=== PATIENT | female | born 1975 | race Caucasian/White ===

== ENCOUNTER → 2017-10-15 08:16 | Outpatient (CLI) | payer OTHER, SELFPAY ==
[2017-10-21 13:46] LABS: HPV Reflexed? NOT INDICATED
== END ==
PROVIDERS: Visit Provider Obstetrics & Gynecology
DX: Z12.4 Encounter for screening for malignant neoplasm of cervix (principal)
CPT/HCPCS: 88175; G0145

== ENCOUNTER → 2018-07-02 14:23 | Outpatient (CLI) | payer OTHER, SELFPAY ==
[2018-07-01 16:45] VITALS: BMI 19.2
== END ==
PROVIDERS: Family Provider Family Medicine; PCP Family Medicine; Referring Provider Physician Assistant; Visit Provider Physician Assistant
DX: J02.9 Acute pharyngitis, unspecified (principal)
CPT/HCPCS: 87081

== ENCOUNTER 2018-08-31 15:07 | Observation (INO) | payer OTHER, SELFPAY ==
[2018-07-01 16:45] VITALS: BMI 19.2
[2018-08-31] VITALS (8 sets, daily range): BP systolic 85–126; BP diastolic 42–82; PULSE 78–127; RESP 14–18; TEMP 36.6–37.6; O2SAT 94–99; BMI 22.1; BMI 23.1; BMI 23.2
--- NOTE | 2018-08-31 15:29 | CT_ITS ---
STUDY: CT ABDOMEN AND PELVIS WITHOUT CONTRAST REASON FOR EXAM: Female, 42 years old. Right lower quadrant pain x5 days RADIATION DOSAGE (If Supplied By Facility): CTDIvol = ( 10.00 ) mGy, DLP = ( 488.24 ) mGycm TECHNIQUE: Transaxial images were obtained from the dome of the diaphragm to the symphysis pubis without oral contrast, and without intravenous contrast. Sagittal and coronal images were reconstructed. Individualized dose optimization techniques were used for this CT. COMPARISON: None. FINDINGS: The visualized lung bases are unremarkable. The visualized portions of the heart are within normal limits. Normal liver. Normal gallbladder and extrahepatic biliary system. Normal spleen. Normal pancreas. Normal bilateral adrenal glands. Normal right kidney. Normal left kidney. Normal visualized stomach. Normal small intestine. Colonic diverticulosis. There is severe induration along the hepatic flexure. No free air or organized fluid collection is noted. No pneumatosis. Appendix is not identified. Normal abdominal aorta. Normal inferior vena cava. Normal retroperitoneum. Normal urinary bladder. Uterus normal. Small amount of free fluid in the pelvis. Normal abdominal wall. 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 CT/Abdomen/Pelvis without Cont IMPRESSION: Probable acute diverticulitis hepatic flexure although other etiologies are not excluded. Appendix is not identified but this does not appear typical for acute appendicitis. Follow-up with IV and oral contrast is recommended. Electronically Signed: Taqueria Farfan MD at 17:57 EST , Service support ,
--- NOTE | 2018-08-31 15:31 | ED.VISSUMM ---
- ER Visit Summary Date of Service: 08/31/18 Chief Complaint: Abdominal pain History of Present Illness: The patient is a 42 F who presents with abdominal pain that has been getting worse over the past 4 days. Patient states her pain began in the periumbilical area and has now moved to the right lower abdomen. Patient admits to some recent appetite. Patient states she last ate at approximately 5:30 PM. Patient states she is only been drinking sips of water today. Patient denies any nausea or vomiting. Patient denies any diarrhea. Patient denies any melena or hematochezia. Patient denies any urinary complaints. Patient states her pain is cramping and is worse when she raises her right leg. Physical Examination: Vital signs are stable except for tachycardia of 127. Patient is afebrile. Patient is in no acute distress. Oral mucosa is pink and moist. Neck is supple. Trachea is midline. There is no JVD noted. Heart was regular rate and rhythm. Lungs are clear and equal bilateral. Abdomen is soft. Bowel sounds are normal. There is right lower quadrant tenderness. There is mild rebound. Rovsing sign was negative. There is no guarding noted. Skin is warm dry. Cranial nerves II through XII are intact. There are no focal motor or sensory deficits noted. The remaining physical exam is within normal limits. Test Results: CBC showed leukocytosis of 12.7. Basic metabolic profile was normal. Urinalysis does not show any evidence of urinary tract infection. CT scan of the abdomen and pelvis was obtained. On my interpretation, it appears to show evidence of appendicitis. Emergency Department Course and Treatment: Patient was given IV fluids, Zofran, and morphine. Case was discussed with Dr. Thao. Patient and family requested Dr. Hill. He was in to evaluate the patient. Disposition: Admit to operating room Impression: Acute appendicitis This note was generated with [employer] dictation software. It may contain incorrect words, spelling, and punctuation that were not noted in review of the chart prior to signing ED Disposition - Plan for ED Patient: Disposition: Acute Care Hospital [facility] Diagnosis: Acute appendicitis Referrals: Quentin Hill III, MD [Primary Care Provider] -
--- NOTE | 2018-08-31 15:35 | ED.DCSUM_ITS ---
- ER Visit Summary Date of Service: 08/31/18 Chief Complaint: Abdominal pain History of Present Illness: The patient is a 42 F who presents with abdominal pain that has been getting worse over the past 4 days. Patient states her pain began in the periumbilical area and has now moved to the right lower abdomen. Patient admits to some recent appetite. Patient states she last ate at approximately 5:30 PM. Patient states she is only been drinking sips of water today. Patient denies any nausea or vomiting. Patient denies any diarrhea. Patient denies any melena or hematochezia. Patient denies any urinary complaints. Patient states her pain is cramping and is worse when she raises her right leg. Physical Examination: Vital signs are stable except for tachycardia of 127. Patient is afebrile. Patient is in no acute distress. Oral mucosa is pink and moist. Neck is supple. Trachea is midline. There is no JVD noted. Heart was regular rate and rhythm. Lungs are clear and equal bilateral. Abdomen is soft. Bowel sounds are normal. There is right lower quadrant tenderness. There is mild rebound. Rovsing sign was negative. There is no guarding noted. Skin is warm dry. Cranial nerves II through XII are intact. There are no focal motor or sensory deficits noted. The remaining physical exam is within normal limits. Test Results: CBC showed leukocytosis of 12.7. Basic metabolic profile was normal. Urinalysis does not show any evidence of urinary tract infection. CT scan of the abdomen and pelvis was obtained. On my interpretation, it appears to show evidence of appendicitis. Emergency Department Course and Treatment: Patient was given IV fluids, Zofran, and morphine. Case was discussed with Dr. Thao. Patient and family requested Dr. Hill. He was in to evaluate the patient. Disposition: Admit to operating room Impression: Acute appendicitis This note was generated with [employer] dictation software. It may contain incorrect words, spelling, and punctuation that were not noted in review of the chart prior to signing ED Disposition - Plan for ED Patient: Disposition: Acute Care Hospital [facility] Diagnosis: Acute appendicitis Referrals: Quentin Hill III, MD [Primary Care Provider] -
[2018-08-31] MEDS: 0.9% Normal Saline 1,000 ML 1000 ML IV (15:55)
--- NOTE | 2018-08-31 15:57 | ED.RN ---
PT REQUESTS TO HOLD OFF ON PAIN MEDICATION AT THIS TIME
[2018-08-31 15:59] LABS: Absolute Lymphocyte Count 0.89 X10^3/ul (0.83-4.51); Absolute Neutrophil Count 10.9 X10^3/uL (2.0-7.7); Basophil# 0.02 X10^3/uL; Basophil% 0.2 % (0-1); Eosinophil# 0.01 X10^3/uL; Eosinophils% 0.1 % (0-5); Hematocrit 43.6 % (37-47); Hemoglobin 14.6 g/dl (12.0-15.0); Lymphocyte # 0.89 X10^3/ul (4.0); Mean Corp Hgb Conc 33.5 g/gl (32-36); Mean Corpuscular Hgb 27.8 pg (27.0-32.0); Mean Corpuscular Volume 82.9 fL (81-99); Mean Platelet Vol. 9.5 fl (6.2-12.0); Monocyte# 0.82 X10^3/uL; Monocyte% 6.5 % (0-10); Neutrophil # 10.91 X10^3/uL (2.7-7.7); Platelet Count 242 K/mm3 (150-450); RBC Distribution Width SD 39.2 fl (35.1-43.9); Red Blood Count 5.26 M/mm3 (4.2-5.4); White Blood Count 12.7 K/mm3 (4.4-11.0)
[2018-08-31 16:01] LABS: POSITIVE COUNT NO; POSITIVE DIFFERENTIAL NO; POSITIVE MORPHOLOGY NO
[2018-08-31 16:25] LABS: ALB/GLOB Ratio 1.1 RATIO (0.9-2.4); AST(SGOT) 11 U/L (15-37); Alanine Aminotransfer ALT/SGPT 18 U/L (13-56); Alkaline Phosphatase 58 U/L (45-117); Anion Gap 12 (5-15); BUN 9 mg/dL (7-18); BUN/Creat Ratio 12.5 RATIO (10-20); Calcium,Total 9.2 mg/dL (8.5-10.1); Chloride 103 mmol/L (98-107); Creatinine, Serum 0.72 mg/dL (0.55-1.02); EST Glomerular Filtration Rate 94 mL/min (>60); Est Glom Filt Rate - Afr Amer 114 mL/min (>60); Estimated Creatinine Clearance 113.77 ml/min; Globulin 3.6 g/dL (2.2-4.2); Glucose 95 mg/dL (74-106); Lipase 67 U/L (73-393); Potassium 3.5 mmol/L (3.5-5.1); Protein, Total 7.6 g/dL (6.4-8.2); Sodium Level 140 mmol/L (136-145)
[2018-08-31 16:30] LABS: Bacteria 0 SEEN /hpf (None Seen); Mucous, Urine 0 SEEN /hpf (<or=2+); White Blood Cells 0 SEEN /hpf (0-5)
[2018-08-31 16:32] LABS: Color, Urine Yellow (Yellow); Glucose, Dipstick Normal (Normal); Ketone-Dipstick 50 mg/dl (Negative); Leukocyte Esterase-Dipstick Negative /ul (Negative); Nitrite-Dipstick Negative (Negative); Occult Blood-Urine 25 /ul (Negative); Protein-Dipstick Negative (Negative); Specific Gravity, Urine 1.005 (1.002-1.030); Urine Bilirubin Dipstick Negative (Negative); Urine Clarity Clear (Clear); Urine Urobilinogen Normal (Normal)
[2018-08-31 16:38] LABS: Internal QC Validated? YES +Cl - CLEAR BKGD; Pregnancy, Urine Negative Negative
[2018-08-31 16:44] LABS: Squamous Epithelial Cells - UA 0-5 SEEN /hpf (5-10)
[2018-08-31 16:45] LABS: Red Blood Cells-Urine 0-5 SEEN /hpf (0-5)
--- NOTE | 2018-08-31 18:05 | APP_PTH ---
PATIENT: LUIS CHAUHAN LOC: MS3 U#:[id number] AGE/SX: 42/F ROOM: DC321 RE08/31/[address]: Dr. Mazin Hill MD : 1975 BED: 1 DIS: 09/01/2018 SPEC #: [id number] RECD: 09/01/18 16:19 STATUS: CELINA VALLES #: [id number] BEKAH: 08/31/18 18:[address]: Mazin Hill DEPT: SURGICAL PATHOLOGY RECD BY: Christian Skinner ENTERED: 09/02/18 12:58 SP TYPE: APPENDIX OTHR DR: Dr. Quentin Hill III, MD Tissues: Appendix, NOS Procedures: Surgery Specimen Level III HEADER OPERATION: Laparoscopic appendectomy PRE-OP DIAGNOSIS: Acute appendicitis TISSUE SUBMITTED: Appendix MICROSCOPIC DIAGNOSIS Appendix: Appendix with focal minimal acute mucosal inflammation. Two minute lymph nodes in periappendiceal adipose tissue, no pathologic diagnosis. SJ:jessee 09/06/18 COMMENT Clinical correlation and appropriate follow up are necessary. This case has been reviewed in consultation who concurs with the above diagnosis. MICROSCOPIC DESCRIPTION Slides are reviewed. GROSS DESCRIPTION Received is one container labeled with the patient's name and designated appendix. The specimen consists of an appendix measuring 8.5 cm in length and up to 0.5 cm in average diameter. The attached periappendiceal adipose tissue measures up to 2 cm in width. The serosa is congested. No obvious perforation is identified. The lumen contains fecal material. No fecalith is identified. [employer] sections are submitted in one cassette. / JUAN:jessee 09/02/18 The rest of the specimen is submitted in two more cassettes, 2 & 3, 2 contains the rest of the appendix, 3 contains the periappendiceal adipose tissue. / JUAN:jessee 09/03/18 TC:2 CPT: 97918
--- NOTE | 2018-08-31 18:27 | HP.PCM_ITS ---
Problem List (1) Acute appendicitis Status: Acute Qualifiers: Acute appendicitis type: unspecified acute appendicitis type Qualified Code(s): K35.80 - Unspecified acute appendicitis History of Present Illness Date of Admission: 08/31/18 The patient is a 42 year old F who presents with a 3-4-day history of illness. Initially she just simply did not feel well and had mid abdominal pain. She denies fever or chills. She is still passing some flatus. She has not had any nausea or vomiting. She has not had any similar illness. She does not have a family history to share. Because the pain rotated and localized down to the right lower quadrant she presented to the emergency room today. She was unable to go to work today. She complains that when she tries to raise her right leg that she has aggravated right lower quadrant abdominal pain. Laboratory demonstrates a mild leukocytosis of 12,[address] scan was obtained. This demonstrates to my eyes a significant amount of stool within the colon. I believe that I see is slightly swollen appendix. The radiology interpretation suggest that they are not able to see the appendix. They suggest that they feel that there is the possibility of hepatic flexure diverticulitis. It is of note however that the patient has not had constipation. She has not had diarrhea. She has not had bright red blood per rectum or melena. She has not had mucus per rectum. She has never had a similar type of illness. She is currently mildly hungry. She has not had nausea or vomiting. She points to the right lower quadrant McBurney's point as the focal area of her pain and tenderness Past Medical History Allergies No Known Allergies Allergy (Verified 08/31/18 15:10) Home Medications: Ambulatory Orders Medication Instructions Recorded Acetaminophen [Tylenol Extra 1,000 mg PO PRN PRN 08/31/18 Strength] Surgical History: Surgical History (Last Reviewed 07/01/18 @ 16:45 by Helene Reyes) History of Z98.891 Surgical History: - - Previous C-sections. Left knee arthroscopy Remote diagnostic laparoscopy for fertility Smoking Status: Never smoker Review of Systems Constitutional: Denies: Anorexia, Chills, Fever, Night Sweats HEENT: Denies: Difficulty Swallowing Cardiovascular: Denies: Chest Pain Respiratory: Denies: Cough Gastrointestinal: Reports: Abdominal Pain. Denies: Nausea, Melena, Vomiting Psychiatric: Denies: Anxiety Endocrine: Denies: Change in Body Habitus VTE Information - Inpt Only VTE Present on Admission: No Patient Problems: Active and Suspected Problems (Last Reviewed 07/01/18 @ 16:45 by Helene Reyes) Acute appendicitis (Acute) - Physical Exam General: Alert, Oriented x3, Cooperative, No apparent distress HEENT: Atraumatic Oral: Moist Mucosa Neck: Supple Lungs: Clear to auscultation Cardiovascular: Regular rate, Regular Rhythm Abdomen: Bowel Sounds Present, Soft, - - Focally tender at McBurney's point with rebound and guarding. No focal mass. Absolutely no right subcostal tenderness, no epigastric tenderness, abdomen is not distended, scattered bowel sounds present Positive psoas sign. Positive Rovsing sign Extremities: No Calf Tenderness Neurological: Cranial nerves II-XII grossly intact Psych/Mental Status: Normal Affect Vital Signs Temp Pulse Resp BP Pulse Ox 97.9 F 127 H 16 121/67 H 97 08/31/18 15:08 08/31/18 15:08 08/31/18 15:08 08/31/18 15:08 08/31/18 15:08 Oxygen Delivery Method Room Air Weight: 159 lb 3.2 oz Body Mass Index (BMI) 22.1 Laboratory Tests Past 24 Hrs 08/31/18 08/31/18 08/31/18 15:45 15:45 16:20 WBC 12.7 H RBC 5.26 Hgb 14.6 Hct 43.6 MCV 82.9 MCH 27.8 MCHC 33.5 RDW 13.0 RDW Differential 39.2 Plt Count 242 MPV 9.5 Immature Gran % (Auto) 0.200 Neut % (Auto) 86.0 H Lymph % (Auto) 7.0 L [place] % (Auto) 6.5 Eos % (Auto) 0.1 Baso % (Auto) 0.2 Absolute Neuts (auto) 10.9 H Absolute Lymphs (auto) 0.89 Total Counted Not Reportable Sodium 140 Potassium 3.5 Chloride 103 Carbon Dioxide 25.0 Anion Gap 12 BUN 9 Creatinine 0.72 Estim Creat Clear Calc 113.77 Est GFR (MDRD) Af Amer 114 Est GFR (MDRD) Non-Af 94 BUN/Creatinine Ratio 12.5 Glucose 95 Calcium 9.2 Total Bilirubin 1.50 H AST 11 L ALT 18 Alkaline Phosphatase 58 Total Protein 7.6 Albumin 4.0 Globulin 3.6 Albumin/Globulin Ratio 1.1 Lipase 67 L Urine Color Urine Clarity Urine pH Ur Specific [place] Urine Protein Urine Glucose (UA) Urine Ketones Urine Occult Blood Urine Nitrite Urine Bilirubin Urine Urobilinogen Ur Leukocyte Esterase Urine RBC Urine WBC Ur Squamous Epith Cells Urine Bacteria Urine Mucus Urine Test Negative 08/31/18 16:20 WBC RBC Hgb Hct MCV MCH MCHC RDW RDW Differential Plt Count MPV Immature Gran % (Auto) Neut % (Auto) Lymph % (Auto) [place] % (Auto) Eos % (Auto) Baso % (Auto) Absolute Neuts (auto) Absolute Lymphs (auto) Total Counted Sodium Potassium Chloride Carbon Dioxide Anion Gap BUN Creatinine Estim Creat Clear Calc Est GFR (MDRD) Af Amer Est GFR (MDRD) Non-Af BUN/Creatinine Ratio Glucose Calcium Total Bilirubin AST ALT Alkaline Phosphatase Total Protein Albumin Globulin Albumin/Globulin Ratio Lipase Urine Color Yellow Urine Clarity Clear Urine pH 6.0 Ur Specific [place] 1.005 Urine Protein Negative Urine Glucose (UA) Normal Urine Ketones 50 H Urine Occult Blood 25 H Urine Nitrite Negative Urine Bilirubin Negative Urine Urobilinogen Normal Ur Leukocyte Esterase Negative Urine RBC 0-5 SEEN Urine WBC 0 SEEN Ur Squamous Epith Cells 0-5 SEEN Urine Bacteria 0 SEEN Urine Mucus 0 SEEN Urine Test Assessment/Plan All Active Problems (Last Reviewed 07/01/18 @ 16:45 by Helene Reyes) Acute appendicitis (Acute) Pharyngitis (Acute) URI (upper respiratory infection) (Acute) Conjunctivitis (Acute) 42-year-old female. Approximately 3-day history of abdominal pain initially starting in the mid abdomen now focally localized to the right lower quadrant and McBurney's point. The patient's history and clinical examination and laboratory all very much correlate with acute appendicitis. On review of imaging I believe that I am able to detect a mildly swollen appendix. Although there appears to be diffuse changes of the hepatic flexure of the colon she is absolutely nontender to examination in that area of her abdomen. With the patient's present I have discussed all of the treatment options. There is a significant amount of fecal retention. It is not clear to me that a contrasted CT scan will unequivocally resolve the diagnosis. The patient's history presentation clinical exam is strong for acute appendicitis. I believe that it is very reasonable to perform a diagnostic laparoscopy with anticipated laparoscopic appendectomy for intended definitive treatment and diagnosis. The patient is aware that a normal appendix may be encountered and that if feasible I will pursue a laparoscopic appendectomy in this situation. The patient is aware that if acute diverticulitis is encountered as long as there is no signs of acute perforation that I will not pursue resection at this setting. Obviously if there are signs of acute perforation which would not correlate with her clinical examination then appropriate definitive surgical treatment would be rendered. After significant discussion regarding conservative and interventional treatment options the patient elected to proceed with diagnostic laparoscopy and intended laparoscopic appendectomy. She is comfortable that this is the most direct means of providing a definitive diagnosis. We will initiate therapeutic IV antibiotics and proceed as noted. The diagnosis of acute appendicitis would statistically be a much more likely diagnosis than hepatic flexure diverticulitis. She is not demonstrating any additional symptoms that would correlate with acute colitis. Mazin Hill M.D., F.A.C.S.
--- NOTE | 2018-08-31 18:45 | DCINST_ITS ---
<Mazin Hill - Last Filed: 08/31/18 18:45> Discharge Diet: Light diet - advance as tolerated - if you have questions about your diet instructions, please talk to you doctor. Discharge Activity: May Not Drive - for 3-5 days or while taking narcotic pain medicine. May shower in (days): 1 Lifting Restrictions: 10 pounds Call your doctor if your incision/area has: Continuous Slow Oozing, Sudden Increased Bleeding, Increased Pain/ Swelling, Increased Redness, Foul Smelling Discharge Call your doctor if you observe: Fever of 101 or Higher Suture Line Care: Avoid Pulling/Pushing, Avoid Pinching/Bending Additional Dressing/Incision Instructions:: Change or remove dressing in 4 days. Leave steri-strips in place for 1 week. Allergies/Adverse Reactions: Allergies No Known Allergies Allergy (Verified 08/31/18 15:10) Medications to take at Discharge Acetaminophen [Tylenol Extra Strength] 1,000 mg PO PRN PRN 08/31/18 Amox/Clavulanate Tablet [Augmentin Tablet] 875 mg PO Q12H 7 Days #14 tablet 09/01/18 The following prescriptions were given: Amox/Clavulanate Tablet [Augmentin Tablet] 875 mg PO Q12H 7 Days #14 tablet Primary Care Physician: Quentin Hill III, MD [Primary Care Provider] - Test Results: Test results from this visit will be discussed in further detail at your follow- up appointment, if applicable. Please Follow Up With: Mazin Hill MD - [phone] When: Call to make an appointment to be seen in about 10 days. <Angelica Noguera - Last Filed: 09/01/18 13:34> Test Results: Test results from this visit will be discussed in further detail at your follow- up appointment, if applicable.
[2018-08-31] MEDS: Bupivacaine Mpf 0.5% 30 ML VIAL (19:30)
--- NOTE | 2018-08-31 19:38 | PCM.OPRPT ---
Problem List (1) Acute appendicitis Status: Acute Qualifiers: Acute appendicitis type: unspecified acute appendicitis type Qualified Code(s): K35.80 - Unspecified acute appendicitis Report of Operation Date of Procedure: 08/31/18 Pre-Operative Diagnosis: Acute appendicitis Post-Operative Diagnosis: Possible acute colitis Surgery/Procedure Performed:: Diagnostic laparoscopy with laparoscopic appendectomy Description of Surgical Findings:: Timeout and informed consent was obtained 42-year-old female taken out from placement table underwent general endotracheal intubation anesthesia Zosyn 4.5 g given intravenous preoperatively. The abdomen was sterilely prepped draped.0.5% Marcaine was used as local anesthetic skin sites were pre-anesthetized throughout the procedure total 30 cc was used. A vertical infraumbilical incision was created sharp dissection carried down through subcutaneous tissues there is no inserted saline drop test performed the abdomen was insufflated with CO2 to a pressure of 10 mm from fracture [place] trocar inserted 10 lap scope inserted no evidence of intraocular injuries there were adhesions of omentum to the infraumbilical midline. There was a whittaker cloudy fluid within the pelvis. The tubes and ovaries were carefully inspected and photographed did not appear to be the source of the fluid. The appendix was inspected and no mildly dilated did not appear to be source of the fluid. The colon appeared to have stool within it but did not appear to be overtly injected or inflamed. There was retroperitoneal edema located superior to the hepatic flexure. The duodenal sweep mildly distended. Diverticulosis of the ascending and proximal transverse colon noted but no evidence of acute induration or injection. There was no foul odor. No feculent material. This point I elected to proceed with the definitive laparoscopic appendectomy. A window was made in the mesoappendix standard height 45 mm stapler was used to transect the appendix flush with the cecum vascular height stapler was used to transect the mesoappendix hemo-lock clips were used to assure hemostasis. Appendix was placed in retrieval bag. The right lower quadrant was carefully inspected. Hemostasis was very nicely intact. The pelvis was carefully inspected and then the light whittaker cloudy fluid was aspirated free. The colon was again inspected did not see any acute signs of inflammation other than some mild edema of the retroperitoneum. The greater omentum was placed overlying. Trochars removed under visualization after the appendix removed at the umbilicus. The abdomen was allowed to deflate the CO2. The fascia umbilicus approximated with interrupted 2-0 Vicryl [id number] suture. Skin edges proximal interrupted 4 Monocryl subdermal stitches. Steri-Strips Telfa and OpSite dressings applied. Sponge and instrument and needle counts were reported the surgeon be correct. Blood loss was minimal. She tolerated the procedure well and was taken to the recovery room in satisfactory condition without apparent complication. Specimens appendix. Drains none. Blood loss minimal. Mazin Hill M.D., F.A.C.S. Type of Anesthesia:: General Anesthesiologist: Fabiola Juárez
--- NOTE | 2018-08-31 19:43 | OP.PCM_ITS ---
Problem List (1) Acute appendicitis Status: Acute Qualifiers: Acute appendicitis type: unspecified acute appendicitis type Qualified Code(s): K35.80 - Unspecified acute appendicitis Report of Operation Date of Procedure: 08/31/18 Pre-Operative Diagnosis: Acute appendicitis Post-Operative Diagnosis: Possible acute colitis Surgery/Procedure Performed:: Diagnostic laparoscopy with laparoscopic appendectomy Description of Surgical Findings:: Timeout and informed consent was obtained 42-year-old female taken out from placement table underwent general endotracheal intubation anesthesia Zosyn 4.5 g given intravenous preoperatively. The abdomen was sterilely prepped draped.0.5% Marcaine was used as local anesthetic skin sites were pre-anesthetized throughout the procedure total 30 cc was used. A vertical infraumbilical incision was created sharp dissection carried down through subcutaneous tissues there is no inserted saline drop test performed the abdomen was insufflated with CO2 to a pressure of 10 mm from fracture [place] trocar inserted 10 lap scope inserted no evidence of intraocular injuries there were adhesions of omentum to the infraumbilical midline. There was a whittaker cloudy fluid within the pelvis. The tubes and ovaries were carefully inspected and photographed did not appear to be the source of the fluid. The appendix was inspected and no mildly dilated did not appear to be source of the fluid. The colon appeared to have stool within it but did not appear to be overtly injected or inflamed. There was retroperitoneal edema located superior to the hepatic flexure. The duodenal sweep mildly distended. Diverticulosis of the ascending and proximal transverse colon noted but no evidence of acute induration or injection. There was no foul odor. No feculent material. This point I elected to proceed with the definitive laparoscopic appendectomy. A window was made in the mesoappendix standard height 45 mm stapler was used to transect the appendix flush with the cecum vascular height stapler was used to transect the mesoappendix hemo-lock clips were used to assure hemostasis. Appendix was placed in retrieval bag. The right lower quadrant was carefully inspected. Hemostasis was very nicely intact. The pelvis was carefully inspected and then the light whittaker cloudy fluid was aspirated free. The colon was again inspected did not see any acute signs of inflammation other than some mild edema of the retroperitoneum. The greater omentum was placed overlying. Trochars removed under visualization after the appendix removed at the umbilicus. The abdomen was allowed to deflate the CO2. The fascia umbilicus approximated with interrupted 2-0 Vicryl [id number] suture. Skin edges pro ximal interrupted 4 Monocryl subdermal stitches. Steri-Strips Telfa and OpSite dressings applied. Sponge and instrument and needle counts were reported the surgeon be correct. Blood loss was minimal. She tolerated the procedure well and was taken to the recovery room in satisfactory condition without apparent complication. Specimens appendix. Drains none. Blood loss minimal. Mazin Hill M.D., F.A.C.S. Type of Anesthesia:: General Anesthesiologist: Fabiola Juárez
[2018-08-31] MEDS: HYDROmorphone 0.5 MG/0.5 ML SYRINGE IV (21:32)
[2018-08-31] MEDS: Lactated Ringers 1,000 ML 70 ML IV (21:34)
[2018-09-01] MEDS: HYDROmorphone 0.5 MG/0.5 ML SYRINGE IV (00:14)
[2018-09-01 01:19] VITALS: BP 99/51; PULSE 76; RESP 16; TEMP 37.3; O2SAT 96
[2018-09-01] MEDS: Acetaminophen 325 MG Tablet 650 MG PO ×2 (04:17→11:55)
--- NOTE | 2018-09-01 06:09 | PCM.PN.SRG ---
Patient Problems: Active and Suspected Problems (Last Reviewed 07/01/18 @ 16:45 by Helene Reyes) Acute appendicitis (Acute) Subjective: Pt states RLQ pain is much improved over admission, now just incisional soreness - Physical Exam General: Alert, Oriented x3, Cooperative, No apparent distress Abdomen: Bowel Sounds Present, Soft, Non Tender Vital Signs Temp Pulse Resp BP Pulse Ox 99.1 F 76 16 99/51 L 96 09/01/18 01:19 09/01/18 01:19 09/01/18 01:19 09/01/18 01:19 09/01/18 01:19 Oxygen Delivery Method Room Air Weight: 166 lb 2 oz Body Mass Index (BMI) 23.1 Intake and Output for Last 24 Hours 08/30/18 08/31/18 09/01/18 23:59 23:59 23:59 Intake Total 700 / 700 560 / 560 Output Total 150 / 150 Balance 700 / 700 410 / 410 Laboratory Tests Past 24 Hrs 08/31/18 08/31/18 08/31/18 15:45 15:45 16:20 WBC 12.7 H RBC 5.26 Hgb 14.6 Hct 43.6 MCV 82.9 MCH 27.8 MCHC 33.5 RDW 13.0 RDW Differential 39.2 Plt Count 242 MPV 9.5 Immature Gran % (Auto) 0.200 Neut % (Auto) 86.0 H Lymph % (Auto) 7.0 L [place] % (Auto) 6.5 Eos % (Auto) 0.1 Baso % (Auto) 0.2 Absolute Neuts (auto) 10.9 H Absolute Lymphs (auto) 0.89 Total Counted Not Reportable Sodium 140 Potassium 3.5 Chloride 103 Carbon Dioxide 25.0 Anion Gap 12 BUN 9 Creatinine 0.72 Estim Creat Clear Calc 113.77 Est GFR (MDRD) Af Amer 114 Est GFR (MDRD) Non-Af 94 BUN/Creatinine Ratio 12.5 Glucose 95 Calcium 9.2 Total Bilirubin 1.50 H AST 11 L ALT 18 Alkaline Phosphatase 58 Total Protein 7.6 Albumin 4.0 Globulin 3.6 Albumin/Globulin Ratio 1.1 Lipase 67 L Urine Color Urine Clarity Urine pH Ur Specific [place] Urine Protein Urine Glucose (UA) Urine Ketones Urine Occult Blood Urine Nitrite Urine Bilirubin Urine Urobilinogen Ur Leukocyte Esterase Urine RBC Urine WBC Ur Squamous Epith Cells Urine Bacteria Urine Mucus Urine Test Negative 08/31/18 16:20 WBC RBC Hgb Hct MCV MCH MCHC RDW RDW Differential Plt Count MPV Immature Gran % (Auto) Neut % (Auto) Lymph % (Auto) [place] % (Auto) Eos % (Auto) Baso % (Auto) Absolute Neuts (auto) Absolute Lymphs (auto) Total Counted Sodium Potassium Chloride Carbon Dioxide Anion Gap BUN Creatinine Estim Creat Clear Calc Est GFR (MDRD) Af Amer Est GFR (MDRD) Non-Af BUN/Creatinine Ratio Glucose Calcium Total Bilirubin AST ALT Alkaline Phosphatase Total Protein Albumin Globulin Albumin/Globulin Ratio Lipase Urine Color Yellow Urine Clarity Clear Urine pH 6.0 Ur Specific [place] 1.005 Urine Protein Negative Urine Glucose (UA) Normal Urine Ketones 50 H Urine Occult Blood 25 H Urine Nitrite Negative Urine Bilirubin Negative Urine Urobilinogen Normal Ur Leukocyte Esterase Negative Urine RBC 0-5 SEEN Urine WBC 0 SEEN Ur Squamous Epith Cells 0-5 SEEN Urine Bacteria 0 SEEN Urine Mucus 0 SEEN Urine Test Medical Necessity - Tobacco Use Smoking Status: Never smoker Assessment/Plan All Active Problems (Last Reviewed 07/01/18 @ 16:45 by Helene Reyes) Acute appendicitis (Acute) Pharyngitis (Acute) URI (upper respiratory infection) (Acute) Conjunctivitis (Acute) Await labs and anticipate dc on oral Ab for ? hepatic flexure diverticulitis
[2018-09-01] MEDS: Lactated Ringers 1,000 ML 30 ML IV (06:33)
[2018-09-01 06:54] LABS: Hematocrit 39.3 % (37-47); Hemoglobin 12.9 g/dl (12.0-15.0); Lymphocyte % 3.4 % (19-41); Mean Corp Hgb Conc 32.8 g/gl (32-36); Mean Corpuscular Hgb 27.3 pg (27.0-32.0); Mean Corpuscular Volume 83.1 fL (81-99); Mean Platelet Vol. 9.6 fl (6.2-12.0); Monocyte# 0.35 X10^3/uL; Neutrophil # 11.03 X10^3/uL (2.7-7.7); Neutrophil % 93.4 % (47-70); Platelet Count 226 K/mm3 (150-450); RBC Distribution Width CV 13.2 % (11.6-14.6); RBC Distribution Width SD 39.5 fl (35.1-43.9); Red Blood Count 4.73 M/mm3 (4.2-5.4); White Blood Count 11.8 K/mm3 (4.4-11.0)
[2018-09-01 06:56] LABS: Differential Indicated SCAN CRITERIA MET; POSITIVE COUNT NO; POSITIVE DIFFERENTIAL YES; POSITIVE MORPHOLOGY NO
[2018-09-01 08:05] VITALS: BP 96/69; PULSE 77; RESP 16; TEMP 36.8; O2SAT 97
--- NOTE | 2018-09-01 11:04 | NURSING ---
Patient ambulating around unit with at this time.
[2018-09-01 15:05] VITALS: BP 97/53; PULSE 83; RESP 16; TEMP 36.7; O2SAT 97
== END 2018-09-01 15:26 | disposition home or self-care (01) ==
LOC: ED 18:01 → SDC 18:07 → AC 18:08 → MS3 09-01 08:01
PROVIDERS: Admitting Provider Surgery; Emergency Provider Emergency Medicine; Family Provider Family Medicine; PCP Family Medicine; Visit Provider Surgery
PROC: 0DTJ4ZZ Resection of Appendix, Percutaneous Endoscopic Approach (ICD-10-PCS; CPT 44970; principal; 2018-08-31 17:45)
DX: K35.80 Unspecified acute appendicitis (principal); Z23 Encounter for immunization
CPT/HCPCS: 44970; 36415; 74176; 80053; 81001; 81025; 83690; 85025; 88304; 96361; 96365; 96366; 96375; 96376; 99218; 99282; J7030; J7040; J7120; 90686; A4216; G0378; J2405

== ENCOUNTER 2018-10-05 06:30 | Day surgery (SDC) | payer OTHER, SELFPAY ==
[2018-09-14 14:15] VITALS: BMI 23.1
[2018-10-05 06:54] VITALS: BP 114/51; PULSE 88; RESP 14; TEMP 37.1; O2SAT 99
--- NOTE | 2018-10-05 07:54 | OP.ENDO_ITS ---
10/05/2018 Quentin Hill [address] [place] [address] Re : Colonoscopy procedure for Aracelis Madisongavin Dear Dr. Hill This procedure was performed on Friday, October 05, 2018. My impressions and recommendations are as follows: Impressions : - Hemorrhoids found on perianal exam. - Diverticulosis in the entire examined colon. - The examination was otherwise normal. - No specimens collected. Recommendations : - Discharge patient to home. - Resume previous diet. - Continue present medications. - Repeat colonoscopy in 10 years for screening purposes. My findings are described in the full procedure note, which is enclosed. If I can be of further assistance, please feel free to contact me at Doctor phone number(s): Work: . Sincerely, Mazin Hill MD 10/05/2018 7:54:00 AM This report has been signed electronically.
[2018-10-05 08:00] VITALS: BP 114/51; BP 89/54; PULSE 71; RESP 16; TEMP 35.9; O2SAT 94
[2018-10-05 08:05] VITALS: BP 114/51; BP 98/66; PULSE 73; RESP 16; O2SAT 100
[2018-10-05 08:10] VITALS: BP 114/51; BP 118/60; PULSE 79; RESP 16; TEMP 36.4; O2SAT 100
[2018-10-05 08:15] VITALS: BP 103/60; BP 114/51; PULSE 70; RESP 16; TEMP 36.1; O2SAT 100
[2018-10-05 08:44] VITALS: BP 114/51
== END 2018-10-05 09:00 | disposition home or self-care (01) ==
LOC: EN 06:30 → AC 06:31
PROVIDERS: Family Provider Family Medicine; PCP Family Medicine; Referring Provider Family Medicine; Visit Provider Surgery
PROC: 0DJD8ZZ Inspection of Lower Intestinal Tract, Via Natural or Artificial Opening Endoscopic (ICD-10-PCS; CPT 45378; principal; 2018-10-05 07:25)
DX: K64.9 Unspecified hemorrhoids (principal); K57.30 Diverticulosis of large intestine without perforation or abscess without bleeding; R93.3 Abnormal findings on diagnostic imaging of other parts of digestive tract; R10.31 Right lower quadrant pain
CPT/HCPCS: 45378; J7120; J2405

== ENCOUNTER → 2019-05-16 14:36 | Outpatient (CLI) | payer OTHER, SELFPAY ==
[2019-05-13 09:25] VITALS: BMI 21.8
--- NOTE | 2019-05-16 14:40 | US_ITS ---
STUDY: ULTRASOUND BREAST - RIGHT REASON FOR EXAM: Female, 43 years old. Palpable lump in the right breast. TECHNIQUE: Axial and longitudinal images of the RIGHT breast were performed with a high resolution ultrasound transducer. # OF IMAGES: 59 COMPARISON: Comparison is made with prior ultrasound of the right breast dated June 07, 2012 and outside ultrasound dated February 14, 2019. FINDINGS: RIGHT Breast: Once again, multiple cysts are seen throughout the breast. The palpable abnormality is at the 3:00 position of the breast at 1 cm from the nipple. This corresponds to a 2.4 Nathan by 2.4 cm x 1.9 cm cyst. Low-level echoes are seen within it. This also evidence of a 2.1 cm x 1.8 cm x 1.3 cm well-defined hypoechoic nodule at the 9:00 position of the breast at 6 cm from the nipple. This remains stable in size as compared to prior study. Previously, it measured 2.1 cm x 1.2 cm x 1.8 cm. US/Breast Complete Unilateral IMPRESSION: Stable examination. ASSESSMENT CATEGORY: BIRADS Category 2: Benign. A letter regarding these results will be sent to the patient by the facility within 30 days. Electronically Signed: Aidan Bragg, at 15:45 EST , Service support ,
== END ==
PROVIDERS: Family Provider Family Medicine; PCP Family Medicine; Referring Provider Nurse Practitioner Women's Health; Visit Provider Nurse Practitioner Women's Health
DX: N63.10 Unspecified lump in the right breast, unspecified quadrant (principal)
CPT/HCPCS: 76641

== ENCOUNTER → 2019-12-22 16:06 | Outpatient (CLI) | payer OTHER, SELFPAY ==
[2019-12-28 13:10] LABS: HPV APTIMA, High Risk Negative (Negative)
== END ==
PROVIDERS: PCP Family Medicine; Referring Provider Obstetrics & Gynecology; Visit Provider Obstetrics & Gynecology
DX: Z12.4 Encounter for screening for malignant neoplasm of cervix (principal)
CPT/HCPCS: 87624; 88175; G0145

== ENCOUNTER → 2020-03-20 13:19 | Outpatient (CLI) | payer OTHER, SELFPAY ==
--- NOTE | 2020-03-20 13:19 | BI_ITS ---
MAMMOGRAPHY - BILATERAL DIAGNOSTIC REASON FOR EXAM: Female, 44 years old. Multiple bilateral aspirations. PERTINENT HISTORY: Personal history of breast cancer. TECHNIQUE: Digital bilateral breast sheila (3D mammographic acquisition) in the CC and MLO projections. 2-D mediolateral oblique (MLO) and craniocaudad (CC) views of both breasts were obtained. CAD: Full Field Digital Mammography with Computer Added Detection was performed. COMPARISON: Comparison is made with prior examination dated 02/06/2014 and outside examination dated 02/14/2019. FINDINGS: Breast Composition: The breasts are extremely dense, which lowers the sensitivity of mammography. 16 again, there are multiple bilateral nodular densities. The largest is in the axillary region of the left breast. It presently measures 5.7 cm x 5.5 cm. This has increased in size as compared to prior study. The previously seen nodule in the medial retroareolar region of the right breast has decreased in size. No other significant abnormalities are identified. BI/DIAG MAMM W/CAD, BILAT IMPRESSION: Persistent multiple bilateral nodular densities with varying sizes. Correlation with ultrasound is recommended. ASSESSMENT CATEGORY: BIRADS Category 0: Incomplete. Need additional imaging evaluation. A letter regarding these results will be sent to the patient by the facility within 30 days. Approximately 10% of breast cancers are not detected by mammography. A normal mammogram should not delay biopsy of a clinically suspicious abnormality. Electronically Signed: Aidan Bragg, at 14:58 EDT , Service support ,
--- NOTE | 2020-03-20 13:19 | US_ITS ---
STUDY: ULTRASOUND BREAST - RIGHT REASON FOR EXAM: Female, 44 years old. Abnormal screening mammogram. History of breast cysts. TECHNIQUE: Axial and longitudinal images of the RIGHT breast were performed with a high resolution ultrasound transducer. # OF IMAGES: 149 COMPARISON: Comparison is made with prior ultrasound right breast dated 05/16/2019 and prior mammogram done earlier in the day. FINDINGS: RIGHT Breast: Multiple cysts are once again seen. The largest cyst measures 2.3 cm x 2.5 cm x 1.3 cm. This is at the 9:30 position of the breast at 4 cm from the nipple. Stable well-defined hypoechoic solid nodule measuring 1.9 cm x 1.5 cm by 1.4 cm. This is at the 9 o''clock position of the breast at 6 cm from the nipple. IMPRESSION: Stable examination. ASSESSMENT CATEGORY: BIRADS Category 2: Benign. A letter regarding these results will be sent to the patient by the facility within 30 days. Electronically Signed: Aidan Mahsa, at 9:48 EDT , Service support , STUDY: ULTRASOUND BREAST - LEFT REASON FOR EXAM: Female, 44 years old. Abnormal screening mammogram. History of breast cysts. TECHNIQUE: Axial and longitudinal images of the LEFT breast were performed with a high resolution ultrasound transducer. # OF IMAGES: 149 COMPARISON: Comparison is made with prior ultrasound of the left breast dated 01/20/2013 and 02/06/2014 as well as prior mammogram done earlier in the day. FINDINGS: LEFT Breast: Multiple cysts are seen. The largest cyst is at the 3 o''clock position of the breast at 5 cm from the nipple. This measures 5.2 cm x 5.5 cm by 1.5 cm. There is also evidence of a 1.2 cm x 1.2 cm x 0.6 cm hypoechoic solid nodule at the 3 o''clock position in the breast at 3 cm from the nipple. This may represent a fibroadenoma although tissue diagnosis is recommended. US/Breast Complete Unilateral IMPRESSION: Multiple cysts. 1.2 cm x 1.2 cm x 0.6 cm hypoechoic solid nodule at the 3 o''clock position of the breast at 3 cm from nipple. A biopsy recommended. ASSESSMENT CATEGORY: BIRADS Category 4: Suspicious - Biopsy Should Be Considered. A letter regarding these results will be sent to the patient by the facility within 30 days. Electronically Signed: Aidan Bragg, at 9:50 EDT , Service support ,
== END ==
PROVIDERS: PCP Family Medicine; Referring Provider Obstetrics & Gynecology; Visit Provider Obstetrics & Gynecology
DX: N63.10 Unspecified lump in the right breast, unspecified quadrant (principal); N60.02 Solitary cyst of left breast
CPT/HCPCS: 76641; 77062; 77066; G0279

== ENCOUNTER → 2020-03-27 | Outpatient (CLI) | payer OTHER, SELFPAY ==
--- NOTE | 2020-03-27 14:45 | BRBX_PTH ---
PATIENT: LUIS CHAUHAN LOC: [facility] U#:[id number] AGE/SX: 44/F ROOM: RE03/27/[address]: Dr. Carlos Enrique Dhillon MD : 1975 BED: DIS: 03/27/2020 SPEC #: [id number] RECD: 03/27/20 15:34 STATUS: CELINA REYulissa #: [id number] BEKAH: 03/27/20 14:[address]: Carlos Enrique Dhillon DEPT: SURGICAL PATHOLOGY RECD BY: Jai Winters ENTERED: 03/28/20 12:20 SP TYPE: BREAST BX OTHR DR: Dr. Quentin Hill III, MD Tissues: Left breast, NOS Procedures: Surgery Specimen Level IV HEADER OPERATION: Left breast biopsy PRE-OP DIAGNOSIS: Left breast mass TISSUE SUBMITTED: Left breast tissue MICROSCOPIC DIAGNOSIS Left breast, core biopsy: Focal intraductal hyperplasia without atypia. Focal benign histiocytic proliferation with associated mild chronic inflammation suggestive of ruptured cyst. No evidence of malignancy. See comment. AM:jessee 03/29/20 COMMENT Clinical correlation is suggested. MICROSCOPIC DESCRIPTION Slides are reviewed. GROSS DESCRIPTION Received in fixative is one container labeled with the patient name and designated left breast. The specimen consists of multiple elongated fragments of whittaker-yellow fibroadipose tissue mixed with blood clots that in aggregate measure 2.5 x 2 x 0.1 cm. The entire specimen is submitted in one cassette. / SJ:jessee 03/28/20 TC:5 CPT: 26908
== END | disposition home or self-care (01) ==
LOC: LABSPEC 03-28 11:43
PROVIDERS: PCP Family Medicine; Visit Provider Surgery
DX: N63.20 Unspecified lump in the left breast, unspecified quadrant (principal)
CPT/HCPCS: 88305

== ENCOUNTER → 2020-09-27 07:55 | Outpatient (CLI) | payer OTHER, SELFPAY ==
--- NOTE | 2020-09-27 07:56 | US_ITS ---
STUDY: ULTRASOUND BREAST - LEFT REASON FOR EXAM: Female, 44 years old. Six-month follow-up. Breast cysts. TECHNIQUE: Axial and longitudinal images of the LEFT breast were performed with a high resolution ultrasound transducer. # OF IMAGES: 70 COMPARISON: Comparison is made with prior ultrasound of the left breast dated 03/20/2020. FINDINGS: LEFT Breast: Once again, multiple breasts cysts are seen. The largest measures 1.6 cm by 2.3 cm by 1.1 cm. This is located at the 3 o''clock position of the breast at 2 cm from the nipple. The previously seen dominant cyst measuring 5.2 sided by 5.5 sinus by 1.5 cm is not seen at this time. US/Breast Complete Unilateral IMPRESSION: Multiple cysts. ASSESSMENT CATEGORY: BIRADS Category 2: Benign. A letter regarding these results will be sent to the patient by the facility within 30 days. Electronically Signed: Aidan Bragg MD at 9:21 EDT , Service support ,
== END ==
PROVIDERS: PCP Family Medicine; Referring Provider Surgery; Visit Provider Surgery
DX: R92.8 Other abnormal and inconclusive findings on diagnostic imaging of breast (principal)
CPT/HCPCS: 76641

== ENCOUNTER → 2021-04-15 13:20 | Outpatient (CLI) | payer OTHER, SELFPAY ==
--- NOTE | 2021-04-15 13:24 | BI_ITS ---
MAMMOGRAPHY - BILATERAL SCREENING REASON FOR EXAM: Female, 45 years old. Routine annual screening examination. PERTINENT HISTORY: Non-contributory. Multiple bilateral breast aspiration. TECHNIQUE: Digital bilateral breast jesu (3D mammographic acquisition) in the CC and MLO projections. 2-D mediolateral oblique (MLO) and craniocaudad (CC) views of both breasts were obtained. CAD: Full Field Digital Mammography with Computer Added Detection was performed. COMPARISON: Comparison is made with prior study of 03/20/2020 and 02/06/2014. FINDINGS: Breast Composition: The breasts are extremely dense, which lowers the sensitivity of mammography. There are no dominant masses or suspicious calcifications. Multiple small bilateral nodules seen in both breasts. The previously seen dominant nodular density in the axillary region of the left breast has markedly decreased in size. It presently measures 1.4 cm. There is evidence of a 2.1 cm x 1.6 cm well-defined nodule in the inferior anterior medial aspect of the left breast. This is unchanged. No other significant abnormalities are identified. BI/SCRN MAMM (CAD)W/JESU BILAT IMPRESSION: Interval decrease in size of a previously seen dominant nodule in the axillary region of the left breast in keeping with the patient''s history of prior aspiration.. Yearly follow-up mammogram recommended. (A) ASSESSMENT CATEGORY: BIRADS Category 2: Benign. A letter regarding these results will be sent to the patient by the facility within 30 days. Approximately 10% of breast cancers are not detected by mammography. A normal mammogram should not delay biopsy of a clinically suspicious abnormality. [id number] Electronically Signed: Aidan Bragg MD at 14:39 EDT , Service support ,
== END ==
PROVIDERS: Referring Provider Obstetrics & Gynecology; Visit Provider Obstetrics & Gynecology
DX: Z12.31 Encounter for screening mammogram for malignant neoplasm of breast (principal)
CPT/HCPCS: 77063; 77067

== ENCOUNTER → 2021-05-27 09:17 | Outpatient (CLI) | payer OTHER, SELFPAY ==
[2021-05-27 10:03] LABS: Absolute Lymphocyte Count 1.16 X10^3/uL (0.83-4.51); Absolute Neutrophil Count 3.6 X10^3/uL (2.0-7.7); Basophil# 0.04 X10^3/uL; Basophil% 0.8 % (0-1); Eosinophil# 0.04 X10^3/uL; Eosinophils% 0.8 % (0-5); Hematocrit 44.4 % (37-47); Hemoglobin 14.2 g/dL (12.0-15.0); Lymphocyte # 1.16 X10^3/ul (0.83-4.51); Lymphocyte % 22.4 % (19-41); Mean Corpuscular Hgb 26.6 pg (27.0-32.0); Mean Corpuscular Volume 83.1 fL (81-99); Mean Platelet Vol. 9.7 fl (6.2-12.0); Monocyte# 0.35 X10^3/uL; Monocyte% 6.7 % (0-10); NRBC Flagged by Analyzer 0 % (0-5); Neutrophil # 3.58 X10^3/uL (2.7-7.7); Neutrophil % 68.9 % (47-70); Platelet Count 311 K/mm3 (150-450); RBC Distribution Width CV 13.2 % (11.6-14.6); RBC Distribution Width SD 40.3 fl (35.1-43.9); Red Blood Count 5.34 M/mm3 (4.2-5.4); White Blood Count 5.2 K/mm3 (4.4-11.0)
[2021-05-27 10:49] LABS: Vitamin D,25 Hydroxy 11.1 ng/mL
[2021-05-27 10:54] LABS: ALB/GLOB Ratio 1.2 RATIO (0.9-2.4); AST(SGOT) 13 U/L (15-37); Alanine Aminotransfer ALT/SGPT 15 U/L (13-56); Albumin, Serum 3.9 g/dL (3.2-5.0); Alkaline Phosphatase 53 U/L (45-117); Anion Gap 4 (5-15); BUN 9 mg/dL (7-18); BUN/Creat Ratio 14.1 RATIO (10-20); Calcium,Total 9.1 mg/dL (8.5-10.1); Chloride 106 mmol/L (98-107); Cholesterol 208 mg/dL (200); Creatinine, Serum 0.64 mg/dL (0.55-1.02); EST Glomerular Filtration Rate 107 mL/min (>60); Est Glom Filt Rate - Afr Amer 129 mL/min (>60); Globulin 3.2 g/dL (2.2-4.2); Glucose 100 mg/dL (74-106); High Density Lipoprotein 55 mg/dL; Potassium 3.5 mmol/L (3.5-5.1); Protein, Total 7.1 g/dL (6.4-8.2); Sodium Level 139 mmol/L (136-145); Thyroid Stim Hormone (TSH) 2.43 uIU/mL (0.358-3.74); Triglycerides 103 mg/dL; Very Low Density Lipoprotein 21 mg/dL (5-40)
== END ==
PROVIDERS: Referring Provider Obstetrics & Gynecology; Visit Provider Obstetrics & Gynecology
DX: Z01.419 Encounter for gynecological examination (general) (routine) without abnormal findings (principal)
CPT/HCPCS: 36415; 80053; 80061; 82306; 84443; 85025

== ENCOUNTER → 2022-04-17 | Outpatient (CLI) | payer OTHER, SELFPAY ==
--- NOTE | 2022-04-17 08:45 | BI_ITS ---
MAMMOGRAPHY - BILATERAL SCREENING REASON FOR EXAM: Female, 46 years old. Routine annual screening examination. PERTINENT HISTORY: Non-contributory. History of multiple bilateral breast aspirations. TECHNIQUE: Digital bilateral breast jesu (3D mammographic acquisition) in the CC and MLO projections. 2-D mediolateral oblique (MLO) and craniocaudad (CC) views of both breasts were obtained. CAD: Full Field Digital Mammography with Computer Added Detection was performed. COMPARISON: Comparison is made with prior study dated 04/15/2021 and 03/20/2020. FINDINGS: Breast Composition: The breasts are extremely dense, which lowers the sensitivity of mammography. Once again, there are multiple bilateral breast nodules suggestive of cysts. These have increased in size as compared to prior study. A tissue clip marker is seen in the upper lateral portion of the left breast. No other significant abnormalities are identified. BI/SCRN MAMM (CAD)W/JESU BILAT IMPRESSION: Bilateral breast nodules as described. Correlation with ultrasound of both breasts is recommended for further evaluation. ASSESSMENT CATEGORY: BIRADS Category 0: Incomplete. Need additional imaging evaluation. A letter regarding these results will be sent to the patient by the facility within 30 days. Approximately 10% of breast cancers are not detected by mammography. A normal mammogram should not delay biopsy of a clinically suspicious abnormality. [id number] Electronically Signed: Aidan Bragg MD at 10:17 EDT ,
--- NOTE | 2022-04-17 13:24 | US_ITS ---
STUDY: ULTRASOUND BREAST - RIGHT REASON FOR EXAM: Female, 46 years old. Abnormal screening mammogram. TECHNIQUE: Axial and longitudinal images of the RIGHT breast were performed with a high resolution ultrasound transducer. # OF IMAGES: 120 COMPARISON: Comparison is made with prior mammogram dated 04/17/2022 and prior sonogram of the right breast dated 03/20/2020. FINDINGS: RIGHT Breast: Once again, multiple cysts are seen throughout the breast. The largest cyst measures 2.7 cm x 2.6 cm x 1.5 cm. There is also evidence of dilated ducts. There is also evidence of a 1.4 cm x 1.3 cm cyst with low level echoes within it suggestive of a possible hemorrhagic cyst. IMPRESSION: Multiple cysts ASSESSMENT CATEGORY: BIRADS Category 2: Benign. A letter regarding these results will be sent to the patient by the facility within 30 days. Electronically Signed: Aidan Bragg MD at 15:46 EDT , STUDY: ULTRASOUND BREAST - LEFT REASON FOR EXAM: Female, 46 years old. Abnormal screening mammogram. TECHNIQUE: Axial and longitudinal images of the LEFT breast were performed with a high resolution ultrasound transducer. # OF IMAGES: 120 COMPARISON: Comparison is made with prior mammogram done earlier in the day as well as prior sonogram of the left breast dated 09/27/2020. FINDINGS: LEFT Breast: Once again, multiple cysts are seen. The largest cyst measures 2.5 cm x 2.7 cm x 0.8 cm. US/Breast Complete Unilateral IMPRESSION: Multiple breast cysts. ASSESSMENT CATEGORY: BIRADS Category 2: Benign. A letter regarding these results will be sent to the patient by the facility within 30 days. Electronically Signed: Aidan Bragg MD at 15:46 EDT ,
== END | disposition home or self-care (01) ==
PROVIDERS: Visit Provider Obstetrics & Gynecology
DX: Z12.31 Encounter for screening mammogram for malignant neoplasm of breast (principal); R92.8 Other abnormal and inconclusive findings on diagnostic imaging of breast
CPT/HCPCS: 76641; 77063; 77067

== ENCOUNTER → 2022-06-05 | Outpatient (CLI) | payer OTHER, SELFPAY ==
[2022-06-05 09:39] LABS: Vitamin D,25 Hydroxy 12.5 ng/mL
[2022-06-05 09:40] LABS: Cholesterol 276 mg/dL (200); High Density Lipoprotein 57 mg/dL; Triglycerides 104 mg/dL; Very Low Density Lipoprotein 21 mg/dL (5-40)
== END | disposition home or self-care (01) ==
PROVIDERS: Referring Provider Obstetrics & Gynecology; Visit Provider Obstetrics & Gynecology
DX: E55.9 Vitamin D deficiency, unspecified (principal); E78.00 Pure hypercholesterolemia, unspecified
CPT/HCPCS: 36415; 80061; 82306

== ENCOUNTER → 2023-04-20 | Outpatient (CLI) | payer OTHER, SELFPAY ==
--- NOTE | 2023-04-20 07:57 | BI_ITS ---
MAMMOGRAPHY - BILATERAL SCREENING 3-D TOMOSYNTHESIS REASON FOR EXAM: Female, 47 years old. screening PERTINENT HISTORY: No significant family history. TECHNIQUE: 2-D mammograms and 3-D Tomosynthesis of the breast (s) were performed. CAD was performed. COMPARISON: 04/17/2022 FINDINGS: The breast composition is Extermely dense tissue. Scattered benign calcifications are seen. No dense spiculated masses or suspicious microcalcifications are identified. No architectural distortion is identified. There is no skin thickening or retraction. There has been no significant change since the prior study. BI/SCRN MAMM (CAD)W/JESU BILAT IMPRESSION: No mammographic signs of malignancy. Routine yearly mammograms recommended. ASSESSMENT CATEGORY: BIRADS Category 1: Negative. A letter regarding these results will be sent to the patient by the facility within 30 days. FOLLOW UP RECOMMENDATION: Yearly follow up mammogram recommended. (A) Approximately 10% of breast cancers are not detected by mammography. A normal mammogram should not delay biopsy of a clinically suspicious abnormality. Electronically Signed: Amado Smith MD at 10:44 EDT ,
== END | disposition home or self-care (01) ==
LOC: OPBI 07:56
PROVIDERS: Referring Provider Obstetrics & Gynecology; Visit Provider Obstetrics & Gynecology
DX: Z12.31 Encounter for screening mammogram for malignant neoplasm of breast (principal)
CPT/HCPCS: 77063; 77067

== ENCOUNTER → 2024-05-02 | Outpatient (CLI) | payer OTHER, SELFPAY ==
--- NOTE | 2024-05-02 08:06 | BI_ITS ---
MAMMOGRAPHY - BILATERAL SCREENING REASON FOR EXAM: Female, 48 years old. Routine annual screening examination. PERTINENT HISTORY: Non-contributory. History of prior bilateral aspiration for cysts. TECHNIQUE: Digital bilateral breast jesu (3D mammographic acquisition) in the CC and MLO projections. 2-D mediolateral oblique (MLO) and craniocaudad (CC) views of both breasts were obtained. CAD: Full Field Digital Mammography with Computer Added Detection was performed. COMPARISON: Comparison is made with prior study April 20, 2023 April 17, 2022. FINDINGS: Breast Composition: The breasts are extremely dense, which lowers the sensitivity of mammography. Once again, bilateral well-defined nodules. These have been demonstrated to be cysts on prior sonogram. The previously seen well-defined nodule in the left suprahilar region has decreased in size. Several larger nodules are seen in the deep portion of the left breast. There is a 2.4 cm well-defined nodule in the deep upper lateral aspect of the left breast. Correlation with ultrasound recommended. No other significant abnormalities are identified. BI/SCRN MAMM (CAD)W/JESU BILAT IMPRESSION: Well-defined bilateral breast nodules as described most likely representing cysts. Correlation with ultrasound recommended. ASSESSMENT CATEGORY: BIRADS Category 0: Incomplete. Need additional imaging evaluation. A letter regarding these results will be sent to the patient by the facility within 30 days. Approximately 10% of breast cancers are not detected by mammography. A normal mammogram should not delay biopsy of a clinically suspicious abnormality. [id number] Electronically Signed: Aidan Bragg MD at 8:54 EDT ,
--- NOTE | 2024-05-02 12:55 | US_ITS ---
STUDY: ULTRASOUND BREAST - RIGHT REASON FOR EXAM: Female, 48 years old. Abnormal screening mammogram. TECHNIQUE: Axial and longitudinal images of the RIGHT breast were performed with a high resolution ultrasound transducer. # OF IMAGES: 147 COMPARISON: Comparison is made with prior sonogram of the right breast dated April 17, 2022 and prior mammogram done earlier in the day. FINDINGS: RIGHT Breast: The entire right breast was examined with ultrasound. There is a dominant 3.1 cm x 2.6 cm x 1.5 cm septated cyst at the 9:00 position of the breast at 7 cm from nipple. There is a 2 cm x 1.7 cm x 0.8 cm complex solid and cystic nodule at the 9:00 position of the breast at 2 cm from the nipple. This may represent an hemorrhagic cyst. There is also evidence of a 1.1 cm x 1.1 cm x 1 cm solid nodule at the 10:00 position of the breast at 3 cm from nipple. Biopsy is recommended. IMPRESSION: Dominant cyst at the 9:00 position of breast 7 cm from the nipple. Solid nodule measuring 1.1 cm x 1.1 cm x 1 cm at the 10:00 position breast at 2 cm from nipple. Biopsy is recommended. Complex cyst at the 9:00 position of the breast at 7 cm from nipple most likely representing hemorrhagic cyst. ASSESSMENT CATEGORY: BIRADS Category 4: Suspicious - Biopsy Should Be Considered. A letter regarding these results will be sent to the patient by the facility within 30 days. Electronically Signed: Aidan Bragg MD at 13:21 EDT , STUDY: ULTRASOUND BREAST - LEFT REASON FOR EXAM: Female, 48 years old. Abnormal screening mammogram. TECHNIQUE: Axial and longitudinal images of the LEFT breast were performed with a high resolution ultrasound transducer. # OF IMAGES: 147 COMPARISON: Comparison is made with prior mammogram done earlier today as well as prior sonogram of the left breast dated April 17, 2022. FINDINGS: LEFT Breast: There is a 2.5 cm x 2.4 cm x 1.5 cm cyst at the 3:00 position of the breast at 6 cm from nipple. There is also evidence of a 2.6 x 1.9 cm x 1.6 cm cyst at the 1:00 position breast at 8 cm from the nipple. There is a 1.6 cm x 1.4 cm x 0.7 cm predominantly cystic structure with low-level echoes at the 2:00 position of the breast at 3 cm from the nipple. US/Breast Complete Unilateral IMPRESSION: Dominant cysts in the left breast. ASSESSMENT CATEGORY: BIRADS Category 2: Benign. A letter regarding these results will be sent to the patient by the facility within 30 days. Electronically Signed: Aidan Bragg MD at 13:22 EDT ,
== END | disposition home or self-care (01) ==
PROVIDERS: Referring Provider Obstetrics & Gynecology; Visit Provider Obstetrics & Gynecology
DX: Z12.31 Encounter for screening mammogram for malignant neoplasm of breast (principal); N63.10 Unspecified lump in the right breast, unspecified quadrant; N63.20 Unspecified lump in the left breast, unspecified quadrant
CPT/HCPCS: 76641; 77063; 77067

== ENCOUNTER → 2024-05-04 | Outpatient (CLI) | payer OTHER, SELFPAY ==
--- NOTE | 2024-05-03 | BRBX_PTH ---
PATHOLOGY RESULTS PATIENT: LUIS CHAUHAN LOC: [facility] U#:[id number] AGE/SX: 48/F ROOM: RE05/04/[address]: Dr. Carlos Enrique Dhillon MD : 1975 BED: DIS: 05/04/2024 SPEC #: [id number] RECD: 05/04/24 12:33 STATUS: CELINA REYulissa #: [id number] BEKAH: 05/03/24 00:[address]: Carlos Enrique Dhillon DEPT: SURGICAL PATHOLOGY RECD BY: Eulogio Anderson ENTERED: 05/04/24 12:35 SP TYPE: BREAST BX OTHR DR: No Primary Care Phys Tissues: Right breast, NOS Procedures: Surgery Specimen Level IV HEADER OPERATION: Right breast biopsy PRE-OP DIAGNOSIS: Right breast mass TISSUE SUBMITTED: Right breast tissue Ischemic Time: 1 minute Fixation Time: 7 hours MICROSCOPIC DIAGNOSIS Right breast tissue, core biopsy: Focal fibrocystic changes. Focal fibrosis, chronic inflammation and histiocytic reaction consistent with previous biopsy related changes. Negative for atypia or malignancy. See comment. 05/05/2024 COMMENT Correlation with clinical, radiologic findings and appropriate follow up are necessary. This case has been reviewed in consultation with Dr. Troncoso who concurs with the above diagnosis. IDC:PW MICROSCOPIC DESCRIPTION Slides are reviewed. GROSS DESCRIPTION Received in fixative is one container labeled with the patient's name and designated Right breast biopsy. The specimen consists of multiple elongated fragments of whittaker-yellow fibroadipose tissue that in aggregate measure 1.5 x 0.5 x 0.1 cm. The specimen is totally submitted in one cassette. 05/04/2024 TC:5 CPT:76266
--- OUTSIDE RECORDS SUMMARY | 2024-05-04 11:30 | XMS RPT_ITS | CCD ---
Author Organization [facility] Care Team Providers Care Gas Controller Name Role Phone Danica Verma Unavailable Unavailable Cebul III, Quentin Unavailable Unavailable Cebul III, Quentin Unavailable Unavailable Problems Problem Classification Problem Date Documented Da te Episodic/Chronic Unclassified (2 sources) Encounter for screening mammogram for malignant neoplasm of breast; Translations: [Encntr screen mammogram for malignant neoplasm of breast] Onset: 04-30-2017 Episodic Results Test Name Value Interpretation Reference Range Facil ity US Breast Limited Righton US Breast Limited Right Patient Name: LUIS CHAUHAN Ultrasound Exam Date/Time 08/22/2019 10:10:07 EST Exam US Breast Limited Right Ordering Physician Yahaira VERMA VICTORIA Accession Number [id number] CPT4 Codes 15803 () Reason For Exam FU complex cyst R Report REASON FOR EXAM: follow-up at short interval from prior study. PROCEDURE: US BREAST LIMITED RIGHT: AUGUST 22, 2019 - Standard views. Prior study comparison: February 14, 2019, bilateral US breast limited performed at [facility]. . FINDINGS: Targeted ultrasound of the right breast was performed. Patient has multiple cysts which are not subject to follow up. Patient has also had an interval cyst aspiration since the prior ultrasound. The specific presumed complicated cyst for follow-up is located at the 9:00 position right breast 6 cm from the nipple and deep within the tissue. Margins are circumscribed but slightly lobulated. There are diffuse internal echoes but no internal vascularity. The mass measures 2.0 x 1.2 x 1.6 cm which is not significantly changed in size compared to the prior study. ASSESSMENT: Category 3 Probably benign RECOMMENDATION: Ultrasound of the right breast in 6 months. Follow-up diagnostic mammogram of both breasts in 6 months. . Report Dictated on Final Signed Date and Time: 08/22/2019 10:14 am Signed by: MD MARTIN DIANE [facility] MG Breast Tomosynthesis Diag nostic BIon 02-14-2019 MG Breast Tomosynthesis Diagnostic BI Patient Name: LUIS CHAUHAN Mammography Exam Date/Time 02/14/2019 14:36:16 EDT Exam MG Breast Tomosynthesis BI Ordering Physician Yahaira VERMA VICTORIA Accession Number [id number] CPT4 Codes 58999 (MG Breast Tomosynthesis BI), 67873 (MG MAMMO 2D DIAG BILAT) Reason For Exam dense breasts bilateral masses Report PATIENT HISTORY: No known family history of cancer. Benign cyst aspiration of the right breast, February 2017. Cyst aspiration of both breasts. Took hormonal contraceptives for 18 years beginning at age 19. Patient has never smoked. Patient's BMI is 20.9. TIME SINCE LAST MAMMOGRAM: Last mammogram was performed 1 year and 10 months ago. REASON FOR EXAM: clinical finding. INDICATED PROBLEM: Indicated problem(s): bilateral palpable abnormality. PROCEDURE: MG BREAST TOMOSYNTHESIS BL: FEBRUARY 14, 2019 - 2D/3D Procedure 3D Bilateral CC and MLO view(s) were taken. 2D Bilateral CC and MLO view(s) were taken. Prior study comparison: April 30, 2017, bilateral MG breast tomosynthesis bl scr performed at [facility]. March 04, 2016, bilateral MG breast tomosynthesis bl scr performed at [facility]. February 12, 2015, bilateral MG breast tomosynthesis bl performed at [facility]. February 06, 2014, bilateral screening mammogram performed at [facility]. TISSUE DENSITY: The breast tissue is heterogeneously dense, which could obscure underlying abnormalities. . FINDINGS: Dr. Verma reports palpable abnormalities in both breasts. The patient reports a palpable abnormality in the right breast. Mammographically, there are numerous bilateral circumscribed masses which appear largely unchanged from the prior examination. Sonographic images were obtained of both breasts. In the area of palpable concern in the left breast at 2:00 position 4 cm from the nipple as reported by Dr. Verma there is a large simple cyst identified. It measures 4.2 x 1.4 x 4.1 cm. Another similar-appearing finding is seen at the 2:00 position 8 cm from the nipple which measures 4.3 cm in greatest dimension. In the right breast in the area of palpable concern there is another simple cyst identified at the 9:30 position four summation the nipple which measures 2.0 x 1.1 x 1.1 cm. At the 9:00 position 6 cm from the nipple there is an oval well-circumscribed hypoechoic finding which measures 2.1 x 1.8 x 1.2 cm. This finding requires follow-up with an ultrasound in six months. Images of the right axilla demonstrate no adenopathy. Impression: Palpable abnormalities correlate to numerous cysts. One is favored to represent a complicated cyst but requires further evaluation with an ultrasound in six months. This is seen at the 9:00 position 6 cm from the nipple. Markings on images: BB's = Nipples; skin lesions Open [place] = Palpable Line = Scar US BREAST LIMITED: FEBRUARY 14, 2019 - Standard views. 2D digital mammography and tomosynthesis imaging were performed and reviewed with CAD. ASSESSMENT: Category 3 Probably benign (Overall) RECOMMENDATION: Ultrasound of the right breast in 6 months. . Report Dictated on Final Signed Date and Time: 02/14/2019 4:11 pm Signed by: MD RILEY TOM A [facility] US Breast Limited Bilateralo n 02-14-2019 US Breast Limited Bilateral Patient Name: LUIS CHAUHAN Ultrasound Exam Date/Time 02/14/2019 15:30:55 EDT Exam US Breast Limited Ordering Physician Yahaira VERMA VICTORIA Accession Number [id number] CPT4 Codes 19978 () Reason For Exam breast mass Report PATIENT HISTORY: No known family history of cancer. Benign cyst aspiration of the right breast, February 2017. Cyst aspiration of both breasts. Took hormonal contraceptives for 18 years beginning at age 19. Patient has never smoked. Patient's BMI is 20.9. TIME SINCE LAST MAMMOGRAM: Last mammogram was performed 1 year and 10 months ago. REASON FOR EXAM: clinical finding. INDICATED PROBLEM: Indicated problem(s): bilateral palpable abnormality. PROCEDURE: MG BREAST TOMOSYNTHESIS BL: FEBRUARY 14, 2019 - 2D/3D Procedure 3D Bilateral CC and MLO view(s) were taken. 2D Bilateral CC and MLO view(s) were taken. Prior study comparison: April 30, 2017, bilateral MG breast tomosynthesis bl scr performed at [facility]. March 04, 2016, bilateral MG breast tomosynthesis bl scr performed at [facility]. February 12, 2015, bilateral MG breast tomosynthesis bl performed at [facility]. February 06, 2014, bilateral screening mammogram performed at [facility]. TISSUE DENSITY: The breast tissue is heterogeneously dense, which could obscure underlying abnormalities. . FINDINGS: Dr. Verma reports palpable abnormalities in both breasts. The patient reports a palpable abnormality in the right breast. Mammographically, there are numerous bilateral circumscribed masses which appear largely unchanged from the prior examination. Sonographic images were obtained of both breasts. In the area of palpable concern in the left breast at 2:00 position 4 cm from the nipple as reported by Dr. Verma there is a large simple cyst identified. It measures 4.2 x 1.4 x 4.1 cm. Another similar-appearing finding is seen at the 2:00 position 8 cm from the nipple which measures 4.3 cm in greatest dimension. In the right breast in the area of palpable concern there is another simple cyst identified at the 9:30 position four summation the nipple which measures 2.0 x 1.1 x 1.1 cm. At the 9:00 position 6 cm from the nipple there is an oval well-circumscribed hypoechoic finding which measures 2.1 x 1.8 x 1.2 cm. This finding requires follow-up with an ultrasound in six months. Images of the right axilla demonstrate no adenopathy. Impression: Palpable abnormalities correlate to numerous cysts. One is favored to represent a complicated cyst but requires further evaluation with an ultrasound in six months. This is seen at the 9:00 position 6 cm from the nipple. Markings on images: BB's = Nipples; skin lesions Open [place] = Palpable Line = Scar US BREAST LIMITED: FEBRUARY 14, 2019 - Standard views. 2D digital mammography and tomosynthesis imaging were performed and reviewed with CAD. ASSESSMENT: Category 3 Probably benign (Overall) RECOMMENDATION: Ultrasound of the right breast in 6 months. . Report Dictated on Final Signed Date and Time: 02/14/2019 4:11 pm Signed by: MD OSVALDO, JEM Logan [facility] Encounters Encounter Date Encounter Type Care Provider Facility Start: 04-30-[address] [facility] Payers Date Payer Category Payer Policy ID Unknown Progress note 07-19-2021 Note Date & Type Note Facility 07-19-2021 Note HNO ID: [id number] Author: Ward Ellis MA Service: ? Author Type: Family Services Specialist Type: Progress Notes Filed: 07/19/2021 3:50 PM Note Text: POPULATION HEALTH NAVIGATION OUTREACH Action/FYI PCP OFF BOARDING OUTREACH Attempt # 1 LMOVM Attempt # 2 Sent Intalio Message. Encounter closed. Contact made with patient or family member? NO Pt identified by name and : NO Outreach Outcome/Action Unable to reach patient: Left message [employer] message sent Reason for Outreach Attribution: Provider Off-boarding Payer: Payor: MMO / Plan: MMO [employer]US / Product Type: PPO / Care Gap Reviewed:: Annual Wellness visit Breast Cancer screening Colorectal Cancer Screening Flu vaccine Reminder: Reminder note to check Health Maintenance for items below Health Maintenance items due: COVID-19 VACCINE(1) Never done HEPATITIS C SCREENING Never done HIV SCREENING Never done DTAP,TDAP,TD(2 - Tdap) due on 01/06/2007 LIPID SCREEN due on 10/27/2020 DIABETES SCREEN Never done COLORECTAL CANCER SCREENING Never done INFLUENZA(1) due on 03/06/2021 MAMMOGRAM due on 03/20/2021 DEPRESSION SCREENING due on 06/06/2021 Ward Ellis MA July 19, 2021 3:49 PM [facility] Clinical Note 07-19-2021 Note Date & Type Note Facility 07-19-2021 Note Patient Outreach (BRANT TNAV) LUIS CHAUHAN ([id number]) 1975 F Date Time Provider Department 07/19/21 WARD ELLIS During your visit today, we recorded the following information about you: Ward Ellis MA 07/19/2021 3:50 PM Signed POPULATION HEALTH NAVIGATION OUTREACH Action/FYI PCP OFF BOARDING OUTREACH Attempt # 1 LMOVM Attempt # 2 Sent Intalio Message. Encounter closed. Contact made with patient or family member? NO Pt identified by name and : NO Outreach Outcome/Action Unable to reach patient: Left message [employer] message sent Reason for Outreach Attribution: Provider Off-boarding Payer: Payor: MMO / Plan: MMO [employer] / Product Type: PPO / Care Gap Reviewed:: Annual Wellness visit Breast Cancer screening Colorectal Cancer Screening Flu vaccine Reminder: Reminder note to check Health Maintenance for items below Health Maintenance items due: COVID-19 VACCINE(1) Never done HEPATITIS C SCREENING Never done HIV SCREENING Never done DTAP,TDAP,TD(2 - Tdap) due on 01/06/2007 LIPID SCREEN due on 10/27/2020 DIABETES SCREEN Never done COLORECTAL CANCER SCREENING Never done INFLUENZA(1) due on 03/06/2021 MAMMOGRAM due on 03/20/2021 DEPRESSION SCREENING due on 06/06/2021 Ward Ellis MA July 19, 2021 3:49 PM Allergies As of Date: 07/19/2021 Noted Allergy Reaction ERYTHROMYCIN 02/10/2005 11 - Vomiting LATEX 02/25/2008 Comments: condoms PERCOCET (OXYCODONE-ACETAMINOPHEN)10/15/2006 11 - Vomiting VICODIN (HYDROCODONE-ACETAMINOPHE*10/15/2006 11 - Vomiting Date Reviewed: 06/30/2016 Reviewed by: Norma Miller (Landy Francois CNP - Fully Assessed Reason for Visit: Population Health Navigation Outreach [3910] Cmt: Offboarding - Dr iHll III Prescriptions as of 07/19/2021 - methylPREDNISolone (MEDROL, KAREL,) 4 mg Dose-Pack As Instructed per package - Naproxen Sodium (ANAPROX DS) 550 mg tablet Take 1 tablet by mouth twice daily with meals. - RANITIDINE HCL (ZANTAC ORAL) Take by mouth. - desonide (DESOWEN) 0.05 % cream Apply 1 application to affected area twice daily. - ethinyl estradiol/drospirenone(ORALIA 28 3 MG-20 MCG (24) TAB) Take one(1) tablet daily. 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 Encounter Status:Closed by WARD ELLIS on 07/19/21 [facility] Summary Purpose Family History No Family History Records FoundNo Family History Records FoundNo Family History Records Found Advance Directives No Advanced Directives Records FoundNo Advanced Directives Records FoundNo Advanced Directives Records Found Additional Source Comments INFORMATION SOURCE (unrecogn ized section and content) DATE CREATED AUTHOR [facility] DATE CREATED AUTHOR AUTHOR'S ORGANIZ ATION [facility]22[facility] DATE CREATED AUTHOR AUTHOR'S ORGANIZ ATION 08/30/2021 [facility] FOR RECORDS PERTAINING TO PATIENTS WHO ARE OR HAVE BEEN ENROLLED IN A CHEMICAL DEPENDENCY/SUBSTANCEABUSE PROGRAM, SOME INFORMATION MAY BE OMITTED. This clinical summary was aggregated from multiple sources. Caution should be exercised in using it in the provision of clinical care. This summary normalizes information from multiple sources, and as a consequence, information in this document may materially change the coding, format and clinical context of patient data. In addition, data may be omitted in some cases. CLINICAL DECISIONS SHOULD BE BASED ON THE PRIMARY CLINICAL RECORDS. [facility] [employer] [facility]. provides no warranty or guarantee of the accuracy or completeness of information in this document.
== END | disposition home or self-care (01) ==
LOC: LABSPEC 10:43
PROVIDERS: Referring Provider Surgery; Visit Provider Surgery
DX: N63.10 Unspecified lump in the right breast, unspecified quadrant (principal)
CPT/HCPCS: 88305

== ENCOUNTER → 2024-06-13 | Outpatient (CLI) | payer OTHER, SELFPAY ==
[2024-06-20 12:08] LABS: HPV APTIMA, High Risk Negative (Negative)
== END | disposition home or self-care (01) ==
LOC: LABSPEC 11:24
PROVIDERS: Referring Provider Obstetrics & Gynecology; Visit Provider Obstetrics & Gynecology
DX: Z12.4 Encounter for screening for malignant neoplasm of cervix (principal)
CPT/HCPCS: 87624; 88175; G0145

== ENCOUNTER → 2024-11-22 | Outpatient (CLI) | payer OTHER, SELFPAY ==
--- NOTE | 2024-11-22 08:57 | US_ITS ---
PROCEDURE: BREAST LIMITED UNILATERAL 11/22/2024 REASON FOR EXAM: RIGHT BREAST BIOPSY Six-month follow-up. TECHNIQUE: Targeted right breast ultrasound. FINDINGS: Right breast ultrasound was targeted to the prior sonogram dated April 24, 2024.. Stable 1 cm x 1 cm x 1 cm hypoechoic nodule at the 10 o'clock position of the breast at 3 cm from the nipple. A biopsy clip is seen within it. US/Breast Limited Unilateral IMPRESSION: Stable appearance of the nodule. Biopsy clip is seen within it. Follow-up code: Routine Follow-up Reading Location: [place] [id number]
== END | disposition home or self-care (01) ==
PROVIDERS: PCP Student in an Organized Health Care Education/Training Program; Referring Provider Surgery; Visit Provider Surgery
DX: R92.8 Other abnormal and inconclusive findings on diagnostic imaging of breast (principal)
CPT/HCPCS: 76642

== ENCOUNTER 2025-06-15 08:12 | Day surgery (SDC) | payer OTHER, SELFPAY ==
[2025-06-15] VITALS (11 sets, daily range): BP systolic 99–130; BP diastolic 54–73; PULSE 61–92; RESP 16–18; TEMP 36.1–37.1; O2SAT 94–100; BMI 22.4
[2025-06-15 08:41] LABS: Internal QC Validated? YES +Cl - CLEAR BKGD; Pregnancy, Urine Negative Negative
[2025-06-15] MEDS: Lactated Ringers 1,000 ML 15 ML IV (08:45)
--- NOTE | 2025-06-15 08:55 | PCM.PRE.AN2 ---
ASA Classification* ASA Classification ASA Classification: 2 Assessment & Plan Anesthesia* Anesthesia Assessment Anesthesia Assessment: Discussed sedation and/or anesthesia options, risks, benefits, and alternatives with patient/parents/legal guardian/POA. Questions invited. The patient/parents/legal guardian/POA seems to understand and agrees to proceed with anesthesia plan. Reviewed the physical assessment, medical history, allergy history and patient home medications list prior to surgery/procedure/anesthetic and documented any changes. Performed airway and anesthesia risk assessments. Anesthesia Type Anesthesia Type: General and Block (Patient is consented for preop interscalene block.) History Source History Obtained from:: Patient and Chart Anesthesia Focused Assessment* Temperature: 98.7 F Pulse Rate: 84 Blood Pressure: 130/71 Respiratory Rate: 16 Pulse Ox: 100 Oxygen Delivery Method: Room Air Airway Assessment Mouth opens: >3 cm Mallampati Score: III Teeth Condition: Caps/Crowns (Patient has a left lower crown. It is tight.) Neck Range of motion (ROM): Full ROM Labs Anesthesia Preop lab: CBC WBC, (4.4-11.0) 5.2 K/mm3 05/27/21, 09: RBC, (4.2-5.4) 5.34 M/mm3 05/27/21, 09: Hgb, (12.0-15.0) 14.2 g/dL 05/27/21, : Hct, (37-47) 44.4 % 05/27/21, : Plt Count, (150-450) 311 K/mm3 05/27/21, : CHEMISTRY Potassium, (3.5-5.1) 3.5 mmol/L 05/27/21, 09:21 Sodium, (136-145) 139 mmol/L 05/27/21, :21 BUN, (7-18) 9 mg/dL 05/27/21, 09:21 Creatinine, (0.55-1.02) 0.64 mg/dL 05/27/21, :21 Glucose, (74-106) 100 mg/dL 05/27/21, : TSH, (0.358-3.74) 2.43 uIU/mL 05/27/21, : COAG Urine Test Negative Negative Today, 08:25 Pre-Assessment Diagnosis/Proposed Procedure Planned Operative Procedure(s): LEFT SHOULDER ARTHOSCOPIC RTC SUBCROMIAL DECOMPRESSION Anesthesia History 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 When Was Last Pacemaker Check QUESTION #4 FULL TEXT: You/Your Family Experience fever (hyperthermia) with Anesthesia Last Oral Intake Last Oral intake: Last Oral Intake NPO since 21:00 06/15/25 08:32 Meds taken in AM with sips of No 06/15/25 08:32 water? Meds patient instructed to take am of surgery PONV PONV - manufactured buildings supervisor: PONV - manufactured buildings supervisor Female Yes 06/14/25 11:33 HX of Motion Sickness Yes 06/14/25 11:33 HX of N/V After Surgery Yes 06/14/25 11:33 Non-Smoker Yes 06/14/25 11:33 Duration of Surgery greater Yes 06/14/25 11:33 than 60 minutes Number of Risk Factors 5 06/14/25 11:33 PONV Score Severe Risk 06/14/25 11:33 Height & Weight Height & Weight: Anesthesia: Height & Weight Height 5 ft 10 in 06/15/25 08:32 Weight: 71 kg 06/15/25 08:32 Body Mass Index (BMI) 22.4 06/15/25 08:32 Respiratory Assessment Respiratory Assessment - manufactured buildings supervisor: Respiratory Tract Infection Hx - manufactured buildings supervisor Hx Respiratory Tract Infection No 06/14/25 11:33 STOP Sleep Apnea STOP Sleep Apnea - manufactured buildings supervisor: STOP Sleep Apnea - manufactured buildings supervisor Hx Hypertension No 06/14/25 11:33 Hx Sleep Apnea No 06/14/25 11:33 CPAP No 06/14/25 11:33 BIPAP Do you snore loudly (louder No 06/14/25 11:33 than talking or can be heard Do you often feel tired/ No 06/14/25 11:33 fatigued/ sleepy during daytime? Has anyone observed you stop No 06/14/25 11:33 breathing during sleep? STOP Results Negative 06/14/25 11:33 QUESTION #5 FULL TEXT : Do you snore loudly (louder than talking or can be heard through closed doors)? 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 Specify any problems Hx of Preganancy in last 3 No 06/14/25 11:33 Months Nurse Filling Out Transfusion DSCHRIBER 06/14/25 11:33 & Questions: Date: 06/14/25 06/14/25 11:33 Time: 11:34 06/14/25 11:33 Patient unable to answer at this time (ie. confused, unrespo /Reproduction History /Reproductive History - manufactured buildings supervisor: /Reproductive Hx- manufactured buildings supervisor Hx Now No 06/14/25 11:33 Gestational Age (in weeks): EDC: Hx Hx Para Hx Section SAB No 06/14/25 11:33 Does the father of the baby or his family experience fever w Father of the baby Malignant Hypertension history comment Active Medications Active Medications: Current Medications Generic Name Dose Route Start Last Admin Trade Name Freq PRN Reason Stop Dose Admin Lactated Ringer's 1,000 mls @ 15 mls/hr 06/15/25 08:30 06/15/25 08:45 IV 15 mls/hr .Q48H CHRISTI Administration PFSH Medical History Wears contact lenses Migraine headache Non-smoker Abnormal ultrasound of breast Acute bronchitis, unspecified Acute pharyngitis, unspecified Anxiety Home Medications ?Medication ?Instructions ?Recorded ?Last Taken ?Type escitalopram oxalate 10 mg tablet 10 mg PO QDAY #30 tabs 06/13/24 Unknown Rx (Lexapro) inulin 2 gram chewable tablet 2 g PO DAILY 06/14/25 Unknown History Allergy/AdvReac Type Severity Reaction Status Date / Time erythromycin base (From Allergy Unknown PT UNABLE Verified 06/15/25 08:31 Erythrocin) TO RESPOND-NEEDS F/U Surgical History Hx of colonoscopy History of repair of ACL History of appendectomy (~09/2018) History of Social History number of children: 2 Smoking Status: Never smoker alcohol intake: never substance use type: does not use caffeine: Yes what type of physical activity do you participate in: walking seatbelt use: always do you feel safe at home: Yes additional social history: Karlo MALDONADO at [facility] Review of Systems (Anesthesia) ROS Narrative System reviewed and no additional complaints, except as documented.
[2025-06-15] MEDS: Midazolam 2 MG/2 ML Syringe IV (09:40)
[2025-06-15] MEDS: Cefazolin 1 GM/5 ML Vial 2 GM IV (09:59)
[2025-06-15] MEDS: Lidocaine 1% (5 ml sdv) 5 ML Vial 6 ML IV (10:06)
[2025-06-15] MEDS: Epinephrine (1 mg/ml) 1 MG/ML VIAL (10:22)
--- NOTE | 2025-06-15 12:05 | PCM.POST.ANE ---
Anesthesia: Postop Eval I Current Vital Signs Temperature: 97 F Pulse Rate: 92 Blood Pressure: 116/59 Respiratory Rate: 16 Pulse Ox: 100 Oxygen Delivery Method: Room Air Assessment Airway patent: Yes Spontaneous unlabored respirations: Yes Mental status: Awake and Calm nausea: No Vomiting: No Anesthesia Complication: No Fluid Hydration Crystalloid volume administer (ml): 1,500 Total IV fluid infused: 1,500 Progress Note Anesthesia document: Postop Eval 1 completed: Yes
--- NOTE | 2025-06-15 12:24 | OP.PCM_ITS ---
Operative Report (Standard) Operative Information Date of Procedure: 06/15/25 Pre-Operative Diagnosis: 1. Left shoulder rotator cuff tear 2. Left shoulder long head of biceps instability with tenosynovitis 3. Left shoulder subacromial impingement syndrome 4. Left shoulder acromioclavicular joint osteoarthritis Post-Operative Diagnosis: 1. Left shoulder rotator cuff tear 2. Left shoulder long head of biceps instability with tenosynovitis 3. Left shoulder subacromial impingement syndrome 4. Left shoulder acromioclavicular joint osteoarthritis Surgery/Procedure Performed: 1. Left shoulder arthroscopic rotator cuff repair 2. Left shoulder arthroscopic biceps tenodesis 3. Left shoulder subacromial decompression 4. Left shoulder arthroscopic distal clavicle excision chief dispatcher: Yes [employer]: Yen Craft Tasks completed by public aid eligibility assistant: Opening & closing, Implanting device and Retracting Additional behavioral modification assistant?: No Type of Anesthesia: General/Regional RN Documented Start/Stop Times: Operation Date: 06/15/25 10:15 Case Time Into Pre-Op 06/15/25 08:26 Out of Pre-Op 06/15/25 09:57 Anesthesia Start 06/15/25 09:59 Into Room 06/15/25 09:59 Procedure Start 06/15/25 10:22 Procedure End 06/15/25 11:51 Anesthesia End 06/15/25 11:59 Out of Room 06/15/25 11:59 Into Recovery 06/15/25 12:02 Procedure Start Time: 10:22 Procedure Stop Time: 11:51 Select all DRAINS/GRAFTS/IMPLANTS that apply: Implanted device Implanted device details: Arthrex self punching bio composite 4.75 mm swivel lock anchor x 2, triple loaded fiber tack anchor x 1 Estimated Blood Loss: 10 cc Specimen collected: No Description of surgery: Patient was identified in the preoperative holding area by name, medical record number, and date of . The operative extremity was marked. All questions were answered to the patient satisfaction. Regional block was then administered by anesthesia staff. At time of her procedure, patient was brought to the operative suite and positioned supine on a standard operating table. General anesthesia was induced and LMA placed. Patient was positioned in a lateral decubitus position with the left side up. All bony prominences were well- padded. She was held in place with a beanbag. We prepped and draped the left upper extremity in a normal, sterile orthopedic fashion. A timeout was called confirming the side, site, and operation to be performed. No concerns were voiced and and we elected to proceed with surgery. 2 g Ancef administered IV prior to incision by anesthesia staff. The arm was placed in arthroscopic traction with 10 pounds of traction force applied through the arthroscopic portion the case, approximately 70 minutes. A standard posterior portal was then established with a 11 blade scalpel. Blunt tipped trocar was used to enter the glenohumeral joint which was filled with normal saline with epinephrine. Capsulitis was noted. Anterior interval portal was established. Partial articular sided tearing of the supraspinatus was noted and debrided with a shaver. Biceps anchor was stable with minimal fraying at the superior labrum. Biceps tendon was noted to be perched and able to be slightly subluxed out of its groove suggesting instability as well as some tenosynovitis noted in the intertubercular groove portion of the tendon. I proceeded with a loop and tack fixation of the biceps with a fiber link suture wrapped first around the biceps tendon 5 mm from the biceps labral junction and then piercing the tendon with a [employer] suture passer to secure fixation. Biceps tenotomy was performed at the biceps labral junction and the tendon was allowed to retract into the groove. Suture was passed through the eyelet of a swivel lock anchor which was placed along the upper margin of the lesser tuberosity. Self punching anchor was placed after tensioning suture. Tendon was stable following tenodesis. Suture was cut flush. The remaining labrum was debrided of any fraying. Glenohumeral cartilage was pristine. No loose bodies were identified. Arthroscopic instruments were removed. I reentered the shoulder in the subacromial space. Lateral portal was established. Subacromial bursitis was diffuse and I limitedly debrided this with a shaver. Greater than 50% tearing of the supraspinatus was noted and at the footprint. Debridement of the tendon revealed a tear approximately 1 x 1 cm. Tendon Atik edges of the tendon were debrided. Subacromial spur was exposed with cautery and resected with bur to a type I acromion. I then proceeded with double row fixation of the rotator cuff. A self punching triple loaded fiber tack anchor was then placed at the medial margin of the greater tuberosity through percutaneous portal. [place] was set in standard fashion. I sequentially passed the 6 suture limbs through the supraspinatus tendon tissue approximately 1 cm from the tear margin. I sequentially tied the corresponding limbs. There was good compression medially. To reduce the lateral edge of the tissue and secure fixation I elected to place a lateral row anchor with a single swivel lock anchor using 1 suture limb from each knot which was placed on the lateral margin of the greater tuberosity in standard fashion. There is excellent compression and reapproximation of tissue to its [place] footprint. This was stable to probing. Small dogear was noted anteriorly which was reduced with the knotless mechanism. Sutures were cut flush with the anchor and the remaining suture limbs were cut with the knots appropriately. I then exposed the AC joint. The anterior and inferior portions of the joint capsule were released with arthroscopic cautery. Distal clavicle excision was performed in standard fashion with the arthroscopic bur removing approximately 8 mm of distal clavicle retaining in the superior and posterior portions of the joint capsule. The subacromial space was then thoroughly lavaged. Portal sites were closed in interrupted [id number] fashion with 3-0 nylon suture. Bulky sterile compression dressing was applied. Patient was taken out of traction. She was repositioned supine and awake from anesthesia and safely explained in the operative suite. She tolerated the procedure well without apparent complication. She was placed in UltraSling. She was transferred to her gurney and subsequently PACU in stable condition. Need for skilled behavioral modification assistant: Yen Craft PA-C was critical to the outcome of the case. During the course of the procedure the physician behavioral modification assistant played a vital role. Her intimate knowledge of my steps in the procedure aided in safe and expedient completion of the procedure. The PA played a vital role in positioning particularly in obtaining the appropriate positioning. The PA was also vital in the retraction of soft tissues during the exposure and protecting vital structures. The PA was also vital and obtaining tendon reduction and assisting with hardware placement. She also played a vital role in closure and sling application with my direct supervision. Postoperative plan: Nonweightbearing to the operative surety. Sling x 6 weeks. Pendulums to start tomorrow. Follow-up in 2 weeks with initiate physical therapy in 2 weeks and suture removal. Standard rotator cuff repair protocol. Ice to the operative shoulder. Multimodal pain management with Tylenol, Toradol and oxycodone as prescribed. Aspirin 81 mg twice daily for DVT prophylaxis. Surgical Findings: Unstable biceps with tenosynovitis, near complete supraspinatus tendon tear. Stable after fixation. Subacromial spur. AC joint arthrosis. Complications Complications: No Admit VTE Documentation VTE Present on Admission: No VTE Mechan Device Prophylaxis: SCD's VTE Pharm Prophylaxis ordered?: Yes
--- NOTE | 2025-06-15 12:35 | POSTOPAN2_ITS ---
Anesthesia Postop Eval I Sum Postop Eval Completion status Anesthesia document: Postop Eval 1 completed: Yes Anesthesia Postop Eval I Summary Anesthesia Postop Eval I Summary: Anesthesia Postop Eval I: Assessment Summary Airway patent Yes 06/15/25 12:05 HARBOR DEPARTMENT [email or web address] Spontaneous unlabored Yes 06/15/25 12:05 HARBOR DEPARTMENT [email or web address] respirations Mental status Awake,Calm 06/15/25 12:05 HARBOR DEPARTMENT [email or web address] nausea No 06/15/25 12:05 HARBOR DEPARTMENT [email or web address] Vomiting No 06/15/25 12:05 HARBOR DEPARTMENT [email or web address] Anesthesia Postop Eval I: Fluid Summary Crystalloid volume administer 1,500 06/15/25 12:05 HARBOR DEPARTMENT [email or web address] (ml) Colloids volume administered ( ml) Blood Product volume administered (ml) Total IV fluid infused 1,500 06/15/25 12:05 HARBOR DEPARTMENT [email or web address] Anesthesia Postop Eval I: Summary Notes Anesthesia Complication No 06/15/25 12:05 HARBOR DEPARTMENT [email or web address] Anesthesia Complication Comment: Post-operative progress note Anesthesia: Postop Eval II Evaluation Mental status: Awake Pain Level: 4 nausea: No Vomiting: No
--- NOTE | 2025-06-15 12:35 | PCM.POSTANE2 ---
Anesthesia Postop Eval I Sum Postop Eval Completion status Anesthesia document: Postop Eval 1 completed: Yes Anesthesia Postop Eval I Summary Anesthesia Postop Eval I Summary: Anesthesia Postop Eval I: Assessment Summary Airway patent Yes 06/15/25 12:05 [email or web address] Spontaneous unlabored Yes 06/15/25 12:05 MGMT [email or web address] respirations Mental status Awake,Calm 06/15/25 12:05 [email or web address] nausea No 06/15/25 12:05 MGMT [email or web address] Vomiting No 06/15/25 12:05 [email or web address] Anesthesia Postop Eval I: Fluid Summary Crystalloid volume administer 1,500 06/15/25 12:05 [email or web address] (ml) Colloids volume administered ( ml) Blood Product volume administered (ml) Total IV fluid infused 1,500 06/15/25 12:05 [email or web address] Anesthesia Postop Eval I: Summary Notes Anesthesia Complication No 06/15/25 12:05 [email or web address] Anesthesia Complication Comment: Post-operative progress note Anesthesia: Postop Eval II Evaluation Mental status: Awake Pain Level: 4 nausea: No Vomiting: No
== END 2025-06-15 14:56 | disposition home or self-care (01) ==
LOC: SDC 08:13 → AC 08:15
PROVIDERS: Anesthesiology; PCP Student in an Organized Health Care Education/Training Program; Referring Provider Student in an Organized Health Care Education/Training Program; Visit Provider Student in an Organized Health Care Education/Training Program
PROC: (CPT 29827; principal; 2025-06-15 09:55)
DX: M75.102 Unspecified rotator cuff tear or rupture of left shoulder, not specified as traumatic (principal); M19.012 Primary osteoarthritis, left shoulder; M25.312 Other instability, left shoulder; M75.42 Impingement syndrome of left shoulder; M65.912 Unspecified synovitis and tenosynovitis, left shoulder; Z79.899 Other long term (current) drug therapy; Z86.16 Personal history of COVID-19
CPT/HCPCS: 29826; 29827; 29824; 29828; 64415; 01630; 81025; C1713; J2405